=== PATIENT | female | born 1970 | race Caucasian/White ===

== ENCOUNTER → 2017-06-01 | Outpatient (CLI) | payer BC ==
--- NOTE | 2017-06-01 16:01 | DI ---
US PELVIC COMPLETE (NON OB),06/01/2017 10:30 AM: Clinical History: Irregular menses. Previous Exam: None at this facility. Findings: Multiple transabdominal grayscale and color Doppler sonographic images are obtained through the pelvi s, and demonstrate a normal-appearing uterus measuring 9.0 x 4.5 x 5.7 cm with an endometrial stripe measuring 3 mm. The right ovary measures 4.7 x 3.8 x 4.1 cm and contains a few maturing follicles with normal Doppler flow. The largest cyst is seen within the right ovary measuring 3.8 x 3.1 x 3.1 cm. The left ovary measures 3.7 x 1.8 x 2.1 cm also with normal Doppler flow. There is no free air nor free fluid. Impression: 3.8 x 3.1 x 3.1 cm simple cyst within the right adnexa. This appears simple and there is no further f ollowup necessary.
== END ==
LOC: US 10:26
PROVIDERS: ATTEND Nurse Practitioner Family
DX: N92.6 Irregular menstruation, unspecified (principal); N83.201 Unspecified ovarian cyst, right side
CPT/HCPCS: 76856